=== PATIENT | male | born 1980 | race Caucasian/White ===

== ENCOUNTER 2025-02-18 18:28 | Emergency (ER) | payer BC, SELFPAY ==
[2025-02-18 18:30] VITALS: BP 125/82
--- NOTE | 2025-02-18 19:21 | ED.GENMED ---
History of Present Illness
<Anila Caraballo MD, Resident - Last Filed: 02/18/25 22:27>
General
Chief Complaint: Musculo-Skeletal Complaint
Source: patient and significant other
Exam Limitations: none
Time Seen by Provider: 02/18/25 18:55
History of Present Illness
History of Present Illness:
44yo M with no significant PMH who presents with subacute LUE and neck discomfort.
About 3 days ago, the pt started experiencing discomfort in his L axilla/side that feels like 'it's being stretched.' This has evolved over the past 2 days to include a sensation of pressure, heaviness, numbness, and paresthesias in the L arm from
shoulder to hand, including some pain in the L posterior neck. 'Like his arm fell asleep.' When asked to tilt his neck to the L, the pt states that the sensations in the LUE worsen slightly. States that his L 4th digit became transiently numb. Pt
states that the sensation gets worse when he is using his arm at work, when the LUE is elevated on the steering wheel or console operating machinery. Pt is able to move the LUE through full ROM without issue. When asked to abduct the L shoulder
against pressure, he had severe pain slightly inferior to L shoulder. Pt is a construction person. He had similar sx in L axilla 1 yr ago which went away spontaneously. Has not taken anything for pain or discomfort in the last few days. Denies any
CP or SOB or weakness. Denies any swelling of his face with elevation of LUE above head. Denies any swelling of LUE. Endorses fatigue of LUE while using it at work.
Past History
<Anila Caraballo MD, Resident - Last Filed: 02/18/25 22:27>
Past History
ED Past Surgical History: Orthopedic (History of plates and screws in no left lower leg)
Patient has exhibited threatening behavior?: No
PSI?: No
Social History
Tobacco: Smoker
Alcohol: None
Drug: None
Personal:
Living: with family
Employment: Employed (Heavy equipment washer)
Family History
Family History: Other (Noncontributory)
Review of Systems
<Anila Caraballo MD, Resident - Last Filed: 02/18/25 22:27>
Review of Systems
All Other Systems: ROS reviewed and negative except as documented in HPI and ROS
Constitutional: Reports no symptoms
EENT: Reports no symptoms
Respiratory: Reports no symptoms
Cardiac: Reports no symptoms
ABD/GI: Reports no symptoms
: Reports no symptoms
Musculoskeletal: Reports other (discomfort in neck, L shoulder, L axilla, paresthesias down L arm)
Skin: Reports no symptoms
Neurological: Reports other (numbness/tingling of L arm and hand )
Psychiatric: Reports no symptoms
Phy Exam
<Anila Caraballo MD, Resident - Last Filed: 02/18/25 22:27>
General Physical Exam
General Presentation: well appearing and no apparent distress
General age: appears stated age
General Skin: warm, dry and flushed (face)
General Habitus: normal
General Mental: alert
General Hydration: appears well hydrated
Cardiovascular Exam
Cardiovascular Exam: regular rate/rhythm and no edema
Pulmonary Exam
Pulmonary Exam: no respiratory distress
Gastrointestinal Exam
Gastrointestinal Exam: non distended
Neurological Exam
Neurological Exam: alert, oriented x3, CN II-XII intact, no motor deficits (strength symmetric UE retail aide and elbow flexion; R shoulder abduction full; L shoulder abduction against force limited by pain) and no sensory deficits (pt endorses subjective
numbness of L 4th digit but no sensory deficits in LUE on exam )
Musculoskeletal Exam
Musculoskeletal Exam: full ROM (full active ROM of bilat UE ), no edema (no swelling or erythema of LUE) and other (tenderness to palpation over L anterior shoulder )
Skin Exam
Skin Exam: normal color
Psychiatric Exam
Psychiatric Exam: normal mood/affect
Course
<Anila Caraballo MD, Resident - Last Filed: 02/18/25 22:27>
Orders/Labs/Results
Orders:
Orders
02/18/25 18:34
Electrocardiogram (*1) Urgent
Reason for Study: Chest Pain
02/18/25 18:35
EKG- Treatment ONCE
02/18/25 19:42
CR Chest - 2 Views Urgent
Comment:
Reason For Exam: r/o pancoast mass
US Arms, Left [US Periph Venous UPPER Ext LT] Urgent
Comment:
Reason For Exam: doppler US r/o clot or stenosis
02/18/25 19:49
CT Cervical Spine W/o Iv Contr Urgent
Comment:
Reason For Exam: cervical radiculopathy
Vital Signs
Initial and Last Documented VS:
Initial Vital Signs
Temp Pulse Resp BP Pulse Ox
98.0 F 64 18 125/82 97
02/18/25 18:30 02/18/25 18:30 02/18/25 18:30 02/18/25 18:30 02/18/25 18:30
Last Documented Vital Signs
Temp Pulse Resp BP Pulse Ox
98.0 F 64 18 125/82 97
02/18/25 18:30 02/18/25 18:30 02/18/25 18:30 02/18/25 18:30 02/18/25 19:28
<Edvin Mayberry MD - Last Filed: 02/18/25 21:38>
Orders/Labs/Results
Orders:
Orders
02/18/25 18:34
Electrocardiogram (*1) Urgent
Reason for Study: Chest Pain
02/18/25 18:35
EKG- Treatment ONCE
02/18/25 19:42
CR Chest - 2 Views Urgent
Comment:
Reason For Exam: r/o pancoast mass
US Arms, Left [US Periph Venous UPPER Ext LT] Urgent
Comment:
Reason For Exam: doppler US r/o clot or stenosis
02/18/25 19:49
CT Cervical Spine W/o Iv Contr Urgent
Comment:
Reason For Exam: cervical radiculopathy
Vital Signs
Initial and Last Documented VS:
Initial Vital Signs
Temp Pulse Resp BP Pulse Ox
98.0 F 64 18 125/82 97
02/18/25 18:30 02/18/25 18:30 02/18/25 18:30 02/18/25 18:30 02/18/25 18:30
Last Documented Vital Signs
Temp Pulse Resp BP Pulse Ox
98.0 F 64 18 125/82 97
02/18/25 18:30 02/18/25 18:30 02/18/25 18:30 02/18/25 18:30 02/18/25 19:28
<Anila Caraballo MD, Resident - Last Filed: 02/18/25 22:27>
MDM/Problems Addressed
Differential Diagnosis Includes:
Ddx:
Thoracic outlet syndrome (neurogenic vs. venous)
Cervical radiculopathy
DVT in LUE
Atherosclerosis/PAD in LUE
Pancoast tumor
MS (EKG r/o)
MDM/Problems Addressed:
- Duplex US of LUE
- CT cervical spine
- CXR
- EKG
<Anila Caraballo MD, Resident - Last Filed: 02/18/25 22:27>
*Pulse Oximetry
SaO2: 97
Oxygen Mode of Delivery: Room air
Patient hypoxic: no
*Critical Care Note
Total Time (30-74mins, 75-104mins- exclusive of procedures): Not Applicable
<Anila Caraballo MD, Resident - Last Filed: 02/18/25 22:27>
Update Note
Update Note:
EKG unremarkable.
CT cervical spine:
No CT evidence for an acute osseous abnormality of the cervical spine.
Chronic multilevel degenerative changes. Mild to moderate spinal canal stenosis at C5-C6. Varying degrees of chronic multilevel bilateral neuroforaminal osseous encroachment. A follow-up cervical spine MRI could be performed for more complete
characterization on a routine outpatient basis.
CXR:
No focal consolidation, pleural effusion, or pneumothorax. The cardiomediastinal silhouette is normal. Chronic mild degenerative changes of the spine.
US LUE:
The left internal jugular, subclavian, axillary, brachial, basilic, and cephalic veins are patent. There is no sonographic evidence for venous thrombosis.
Will plan for discharge home with f/u with neurologist or PCP for MRI of c-spine for further eval of radiculopathy. If negative, could f/u with vascular neuro for eval of thoracic outlet syndrome.
ED Attending Note
<Anila Caraballo MD, Resident - Last Filed: 02/18/25 22:27>
-
Portions of this chart may have been created with voice recognition software.� Occasional wrong word or��sound alike� substitutions may have occurred due to the inherent limitations of voice recognition software.
<Edvin Mayberry MD - Last Filed: 02/18/25 21:38>
ED Attending Note
Patient seen and examined by attending physician: Yes
I performed a history and physical exam of patient and discussed management with resident, I reviewed resident's note and agree with documented findings and plan of care.: Yes
ED Attending Note:
44-year-old male with 3 days of left arm pain. Mostly lateral arm. I do not repeat tingling to the left fourth finger. Pain radiates to the left neck. No chest pain or shortness of breath. No exertional component. Symptoms been constant for 3
days.
On exam patient is nontoxic in no distress. There is no swelling to the left arm. Good pulses. Motor or sensory neurovascular intact. Tenderness over the left lower posterior paracervical area. Some tenderness towards the trapezius and brachial
plexus. Able to abduct the shoulder but with some discomfort. No respiratory distress.
EKG is normal
Impression radiculopathy like discomfort from the left brachial plexus extending laterally down the arm to the left fourth finger. Likely nervelike pain. Nothing to support a vascular issue. Highly highly doubt cardiac. Patient has had
continuous symptoms for 3 days with no chest pain no shortness of breath no exertional component and her normal EKG. Ultrasound is negative
Discharge Plan
Departure
Patient Disposition: Home (Routine Discharge)
Date of Disposition: 02/18/25
Time of Disposition: 22:24
Patient with high blood pressure during this ER visit?: No
Condition: Good
Covid-19: Not Applicable
Discharge Problem:
Radiculopathy due to cervical spondylosis
Instructions: Radiculopathy of the neck and back (including sciatica) (DC)
Prescriptions:
No Action
epinephrine [EpiPen] 0.3 MG/0.3/SYRINGE auto-injector
0.3 mg IM PRN PRN (Reason: allergic reaction/bee sting) Qty: 1 0RF
Referrals:
Len Grace MD [Active, Orthopedics] - Follow up in 1 week
Referral Note: eval cervical radiculopathy
UNKNOWN - PT DOES,NOT KNOW [Unknown Provider]
Activity Restrictions/Additional Instructions:
You were seen in the ED due to discomfort in your L arm/neck/shoulder. Workup was negative for a blood clot in your arm or any mass in your thoracic cavity causing compression. A CT scan of your neck showed some evidence of bony changes leading to
potential compression of cervical nerves, which can cause the symptoms you are experiencing. Your cardiac workup (EKG) was negative for a heart attack.
You should follow up with an surgical training specialist to get an MRI of your cervical spine and discuss further management. We've provided the referral info for Dr. Grace. You may take NSAIDs (e.g. ibuprofen, advil, motrin) along with tylenol to
manage your symptoms in the meantime.
Return to the ED if you have severe chest pain or trouble breathing.
Interventions
Interventions:
*Risk Screen - Suicide Last Done: 02/18/25 18:30
*General Assessment Last Done: 02/18/25 21:33
*Neglect/Abuse Screening Last Done: 02/18/25 18:30
*ED- Fall Risk Assessment Last Done: 02/18/25 21:33
*ED COVID-19 Vaccine History Last Done: 02/18/25 18:58
*ED Influenza Vaccine History Last Done: 02/18/25 18:58
ED-Musculoskeletal Assessment Last Done: 02/18/25 21:33
Discharge Date and Time
Print Language: MONTENEGRIN
[2025-02-18 22:25] VITALS: BP 119/67
== END 2025-02-18 22:39 | disposition home or self-care (01) ==
LOC: EMR 18:28
PROVIDERS: EMERGENCY PHYSICIAN Emergency Medicine; FAMILY PHYSICIAN Family Medicine
DX: M47.22 Other spondylosis with radiculopathy, cervical region (principal); M48.02 Spinal stenosis, cervical region; M79.602 Pain in left arm; F17.200 Nicotine dependence, unspecified, uncomplicated
CPT/HCPCS: 99284; 71046; 72125; 93005; 93971